=== PATIENT | male | born 1950 | race Caucasian/White ===

== ENCOUNTER → 2016-05-02 | Outpatient (CLI) | payer OTHER, BC ==
[~2016-05-02] MED LIST: ASPEC81 PO; CALC500C3 PEG; FLNIN NAE; INSDGI SC; NAPR1TAB9 PO; NVLGI/PEN SQ; NVLGIPEN SQ; OXYC-57 PO; SIMV20TA2 PO; ZNTT/150 PO; [UNRECOGNIZED DRUG - CODE] PO
[2016-05-02 10:15] LABS: BASO ABS # 0.07 K/uL (0-0.2); COMPLETE YES; EOS % 4.7 %; HEMATOCRIT 39.8 % (42-52); IG% 0.1 %; LYMPH % 36.8 %; LYMPH ABS # 2.59 K/uL (1.2-3.4); MEAN CELL VOLUME 90.7 fL (80-100); MEAN CORPUSCULAR HEMOGLOBIN 30.3 pg (25-34); MEAN CORPUSCULAR HGB CONC 33.4 g/dl (32-36); MEAN PLATELET VOLUME 11.4 fL (7.4-10.4); MONO % 13.2 %; NEUT % 44.2 %; PLATELET COUNT 223 K/uL (130-400); RED BLOOD COUNT 4.39 M/uL (4.7-6.1); WHITE BLOOD COUNT 7.04 K/uL (4.8-10.8)
[2016-05-02 11:26] LABS: ALT/SGPT 28 U/L (12-78); BLOOD UREA NITROGEN 13 mg/dl (7-18); CARBON DIOXIDE 28 mmol/L (21-32); CHLORIDE 104 mmol/L (98-107); CHOLESTEROL 152 mg/dl (0-200); CREATININE 0.89 mg/dl (0.60-1.40); GLUCOSE 91 mg/dl (70-99); POTASSIUM 4.4 mmol/L (3.5-5.1); SODIUM 140 mmol/L (136-145)
[2016-05-02 11:31] LABS: ALB/GLOB RATIO 1.4 (0.9-2); ALKALINE PHOSPHATASE 40 U/L (45-117); AST/SGOT 18 U/L (15-37); CHOLESTEROL/HDL RATIO 2.2; HDL CHOLESTEROL 69 mg/dl; LDL CHOLESTEROL CALCULATED 74 mg/dl; TRIGLYCERIDES 44 mg/dl (0-150); VERY LOW DENSITY LIPOPROT CALC 9 mg/dl
[2016-05-02 12:26] LABS: ESTIMATED AVERAGE GLUCOSE 169 mg/dl; HA1C FLAG Normal (Normal)
== END | disposition home or self-care (01) ==
LOC: C.LAB1850 08:57
PROVIDERS: ATTEND Internal Medicine
DX: E10.9 Type 1 diabetes mellitus without complications (principal); E10.65 Type 1 diabetes mellitus with hyperglycemia; R97.20 Elevated prostate specific antigen [PSA]; E78.00 Pure hypercholesterolemia, unspecified

== ENCOUNTER → 2016-05-06 | Outpatient (CLI) | payer OTHER, BC | END | disposition home or self-care (01) | LOC: C.LABSPEC 17:05 | PROVIDERS: ATTEND Podiatrist | DX: L60.0 Ingrowing nail (principal); L03.032 Cellulitis of left toe ==

== ENCOUNTER → 2016-08-17 | Outpatient (CLI) | payer OTHER, BC ==
[~2016-08-17] MED LIST changes: -OXYC-57 PO
[2016-08-17 10:04] LABS: ESTIMATED AVERAGE GLUCOSE 177 mg/dl; HA1C FLAG Normal (Normal)
== END | disposition home or self-care (01) ==
LOC: C.LAB1850 08:08
PROVIDERS: ATTEND Nurse Practitioner Adult Health
DX: E10.9 Type 1 diabetes mellitus without complications (principal)

== ENCOUNTER → 2016-09-26 | Outpatient (CLI) | payer OTHER, BC ==
[2016-09-26 10:08] LABS: AST/SGOT 19 U/L (15-37); BLOOD UREA NITROGEN 16 mg/dl (7-18); BUN/CREATININE RATIO 15.6 (10-20); CARBON DIOXIDE 27 mmol/L (21-32); CHLORIDE 105 mmol/L (98-107); GLUCOSE 316 mg/dl (70-99); POTASSIUM 4.5 mmol/L (3.5-5.1); SODIUM 138 mmol/L (136-145)
[2016-09-26 10:12] LABS: ALT/SGPT 28 U/L (12-78)
[2016-09-26 10:19] LABS: BETA-HYDROXYBUTYRATE 1.24 mg/dL (0.2-2.81)
--- NOTE | 2016-10-04 12:53 | CODING QUERY MEDICAL NECESSITY ---
CQSUPPORTING DIAGNOSIS NEEDED A supporting diagnosis is required for the test/procedure performed on this patient in order for us to be reimbursed by the patient's insurance. Please provide a supporting diagnosis for the following test/procedure listed below next to the test name along with your signature. *If there is no additional diagnosis for this patient that would support the following test/procedure please document that below next to the test/procedure. Test(s)/Procedure(s) that require a supporting diagnosis: DOS 09/26/16 VITAMIN D TEST Provider Signature: Date: Thank you Daria [facility] Once completed, please kindly fax back to [phone] For questions please call [phone]
== END | disposition home or self-care (01) ==
LOC: C.LAB1850 08:31
PROVIDERS: ATTEND Nurse Practitioner Adult Health
DX: E78.00 Pure hypercholesterolemia, unspecified (principal); E10.9 Type 1 diabetes mellitus without complications; M79.1 Myalgia; M60.9 Myositis, unspecified

== ENCOUNTER → 2017-01-24 | Outpatient (CLI) | payer OTHER, BC ==
[2017-01-24 10:14] LABS: ESTIMATED AVERAGE GLUCOSE 154 mg/dl; HA1C FLAG Normal (Normal)
[2017-01-24 10:25] LABS: CHOLESTEROL/HDL RATIO 2.4
== END | disposition home or self-care (01) ==
LOC: C.LAB1850 08:38
PROVIDERS: ATTEND Nurse Practitioner Adult Health
DX: E78.00 Pure hypercholesterolemia, unspecified (principal); E10.9 Type 1 diabetes mellitus without complications

== ENCOUNTER → 2017-06-02 | Outpatient (CLI) | payer OTHER, BC ==
[~2017-06-02] MED LIST changes: +RANI150T85 PO; -ZNTT/150 PO
[2017-06-02 09:52] LABS: HEMOGLOBIN A1C 7.4 % (4.5-5.6)
== END | disposition home or self-care (01) ==
LOC: C.LAB1850 08:04
PROVIDERS: ATTEND Nurse Practitioner Adult Health
DX: E78.00 Pure hypercholesterolemia, unspecified (principal); R93.2 Abnormal findings on diagnostic imaging of liver and biliary tract; E10.9 Type 1 diabetes mellitus without complications